=== PATIENT | male | born 1950 | race Caucasian/White ===

== ENCOUNTER 2020-04-25 19:11 | Emergency (ER) | payer MEDICARE ==
[2020-04-25 20:40] LABS: BASOPHILS % (AUTO) 0.5 % (0.0-5.0); EOSINOPHILS % (AUTO) 1.1 % (0.0-8.0); HEMATOCRIT 40.6 % (42-54); LYMPHOCYTES % (AUTO) 9.3 % (21.0-51.0); MEAN CORPUSCULAR HEMOGLOBIN 31.9 pg (27.0-33.0); MEAN CORPUSCULAR VOLUME 91.2 fL (79-99); NEUTROPHILS % (AUTO) 81.7 % (40.0-77.0); PLATELET COUNT (AUTO) 194 K/uL (130-400); RED BLOOD CELL COUNT(AUTO) 4.45 MIL/uL (4.50-6.20); RED CELL DISTRIBUTION WIDTH 11.9 % (11.0-15.5); WHITE BLOOD COUNT (AUTO) 11.7 K/uL (4.8-10.8)
[2020-04-25 20:55] LABS: CREATININE 1.2 mg/dL (0.5-1.5); POTASSIUM 4.2 mmol/L (3.5-5.1)
[2020-04-25 21:00] LABS: ALBUMIN 3.9 g/dL (3.5-5.0); BILIRUBIN,TOTAL 0.5 mg/dL (0.2-1.0); TOTAL PROTEIN, SERUM 7.7 g/dL (6.0-8.3)
[2020-04-25] MEDS ORDERED: LEVOFLOXACIN 750 MG/D5W 150 ML 150 ML ONE (21:51)
[2020-04-25 22:05] LABS: BILIRUBIN,URINE SMALL (NEGATIVE); GLUCOSE, URINE (UA) 100 mg/dL (NEGATIVE); KETONES,URINE NEGATIVE (NEGATIVE); LEUKOCYTE ESTERASE ,URINE MODERATE (NEGATIVE); NITRATE,URINE POSITIVE (NEGATIVE); OCCULT BLOOD,URINE LARGE (NEGATIVE); PROTEIN,URINE >=300 mg/dL (NEGATIVE); UROBILINOGEN,URINE 0.2 mg/dL (0.2-1.0)
[2020-04-25 22:07] LABS: APPEARANCE,URINE TURBID (CLEAR); COLOR,URINE RED (YELLOW)
[2020-04-25 22:10] LABS: BACTERIA,URINE Few /HPF (None Seen); RBC,URINE TNTC /HPF (0-1)
[2020-04-25 22:11] LABS: MUCUS,URINE None Seen LPF (None Seen); SQUAMOUS EPITHELIAL CELL,UR None Seen /HPF (0-2)
[2020-04-25] MEDS ORDERED: TAMSULOSIN HCL 0.4 MG CAP.ER.24H ONE (22:56)
[2020-04-25] MEDS ORDERED: DICYCLOMINE HCL 20 MG TAB ONE ×2 (22:57→23:01)
[2020-04-25] MEDS ORDERED: PHENAZOPYRIDINE HCL 200 MG TABLET ONE ×2 (22:57→23:00)
== END 2020-04-25 23:45 | disposition home or self-care (01) ==
LOC: EDH 19:11
DX: N41.0 Acute prostatitis (principal); R31.0 Gross hematuria; N39.0 Urinary tract infection, site not specified; Z88.0 Allergy status to penicillin
CPT/HCPCS: 36415; 74176; 80053; 81001; 85025; 87088; 96361; 96365; 96366; 99284; J1956

== ENCOUNTER 2020-04-26 17:34 | Inpatient (IN) | payer MEDICARE ==
[~2020-04-26] VITALS: Ht 177.8 cm; Wt 53.3 kg
[2020-04-26 18:54] LABS: BASOPHILS % (AUTO) 0.2 % (0.0-5.0); HEMATOCRIT 38.3 % (42-54); LYMPHOCYTES % (AUTO) 4.1 % (21.0-51.0); MEAN CORPUSCULAR HEMOGLOBIN 30.9 pg (27.0-33.0); MEAN CORPUSCULAR HGB CONC 34.7 g/dL (32.0-36.0); MEAN CORPUSCULAR VOLUME 88.9 fL (79-99); MONOCYTES % (AUTO) 6.1 % (3.0-13.0); NEUTROPHILS % (AUTO) 89.2 % (40.0-77.0); PLATELET COUNT (AUTO) 191 K/uL (130-400); RED BLOOD CELL COUNT(AUTO) 4.31 MIL/uL (4.50-6.20); RED CELL DISTRIBUTION WIDTH 11.6 % (11.0-15.5); WHITE BLOOD COUNT (AUTO) 14.3 K/uL (4.8-10.8)
[2020-04-26 19:03] LABS: CREATININE 1.6 mg/dL (0.5-1.5); POTASSIUM 3.8 mmol/L (3.5-5.1)
[2020-04-26] MEDS ORDERED: MORPHINE 2 MG SYG ONE (19:47)
[2020-04-26] MEDS ORDERED: ONDANSETRON 4MG INJ IV PRN (22:45)
[2020-04-26] MEDS ORDERED: DiphenhydrAMINE HCL 50 MG/ML VIAL IV PRN (22:45)
[2020-04-26] MEDS ORDERED: MAG/ALUM/SIMETH 30 ML UDCUP PO PRN (22:45)
[2020-04-26] MEDS ORDERED: MORPHINE 2 MG SYG IV PRN (22:45)
[2020-04-26] MEDS ORDERED: GUAIFENESIN-DM 200/20 MG 10 ML PO PRN (22:45)
[2020-04-26] MEDS ORDERED: HYDROMORPHONE 1 MG INJ IV PRN (22:45)
[2020-04-26] MEDS ORDERED: NITROGLYCERIN 0.4 MG SL TAB SL PRN (22:45)
[2020-04-26] MEDS ORDERED: DIPHENHYDRAMINE HCL 25 MG CAPSULE PO PRN (22:45)
[2020-04-26] MEDS ORDERED: LACTULOSE 20 GM/30 ML UDCUP PO PRN (22:45)
[2020-04-26] MEDS ORDERED: ACETAMINOPHEN 325 MG TAB PO PRN ×2 (22:45)
[2020-04-26 23:15] LABS: APPEARANCE,URINE CLOUDY (CLEAR); BILIRUBIN,URINE SMALL (NEGATIVE); COLOR,URINE BROWN (YELLOW); GLUCOSE, URINE (UA) 100 mg/dL (NEGATIVE); KETONES,URINE 15 mg/dL (NEGATIVE); LEUKOCYTE ESTERASE ,URINE MODERATE (NEGATIVE); NITRATE,URINE POSITIVE (NEGATIVE); OCCULT BLOOD,URINE LARGE (NEGATIVE); PROTEIN,URINE >=300 mg/dL (NEGATIVE)
[2020-04-26 23:44] LABS: RBC,URINE TNTC /HPF (0-1); WBC,URINE TNTC /HPF (0-1)
[2020-04-26 23:45] LABS: AMORPHOUS SEDIMENT,UR Moderate /LPF (None Seen); BACTERIA,URINE Moderate /HPF (None Seen)
[2020-04-27] VITALS (24 sets, daily range): BP systolic 98–149; BP diastolic 46–93
[2020-04-27] MEDS ORDERED: RENAL DOSE IV SCH (00:45)
[2020-04-27] MEDS: TAMSULOSIN HCL 0.4 MG CAP.ER.24H PO SCH ×2 (00:45→09:00)
[2020-04-27] MEDS ORDERED: LEVOFLOXACIN 750 MG/D5W 150 ML 150 ML IV SCH (00:45)
[2020-04-27] MEDS ORDERED: ASPI-1026 PO (01:22)
[2020-04-27] MEDS ORDERED: CAND16TA28 PO (01:22)
[2020-04-27] MEDS ORDERED: METO-408 PO (01:22)
[2020-04-27] MEDS: LEVOFLOXACIN 250 MG/D5W 50ML 50 ML IVPB SCH (03:32)
[2020-04-27 05:30] LABS: BASOPHILS % (AUTO) 0.1 % (0.0-5.0); EOSINOPHILS % (AUTO) 0.1 % (0.0-8.0); HEMATOCRIT 36.8 % (42-54); LYMPHOCYTES % (AUTO) 5.2 % (21.0-51.0); MEAN CORPUSCULAR HEMOGLOBIN 31.2 pg (27.0-33.0); MEAN CORPUSCULAR HGB CONC 35.1 g/dL (32.0-36.0); MEAN CORPUSCULAR VOLUME 89.1 fL (79-99); MONOCYTES % (AUTO) 5.8 % (3.0-13.0); NEUTROPHILS % (AUTO) 88.4 % (40.0-77.0); PLATELET COUNT (AUTO) 188 K/uL (130-400); RED BLOOD CELL COUNT(AUTO) 4.13 MIL/uL (4.50-6.20); RED CELL DISTRIBUTION WIDTH 11.7 % (11.0-15.5)
[2020-04-27 05:37] LABS: CREATININE 1.5 mg/dL (0.5-1.5)
[2020-04-27] MEDS ORDERED: DEXAMETHASONE SOD PHOSPHATE 10MG/ML 1ML VIAL ONE (08:54)
[2020-04-27] MEDS ORDERED: SUCCINYLCHOLINE 200MG/10ML SYR ONE (08:54)
[2020-04-27] MEDS ORDERED: LIDOCAINE PF 100MG/5ML (2%) SYRINGE 5ML ONE (08:54)
[2020-04-27] MEDS ORDERED: MIDAZOLAM HCL 1 MG/ML 2ML VIAL ONE (08:54)
[2020-04-27] MEDS ORDERED: GLYCOPYRROLATE 1 MG/5 ML SYRINGE ONE (08:55)
[2020-04-27] MEDS ORDERED: ROCURONIUM 10MG/1ML SYR 10 MG/ML ML ONE (08:55)
[2020-04-27] MEDS ORDERED: ONDANSETRON 4MG INJ ONE (08:55)
[2020-04-27] MEDS ORDERED: NEOSTIGMINE 5MG/5ML SYR IV ONE (08:55)
[2020-04-27] MEDS ORDERED: PROPOFOL 10 MG/ML 20ML VIAL IV ONE (08:55)
[2020-04-27] MEDS ORDERED: FENTANYL CITRATE PF 50 MCG/1 ML 2ML VIAL ONE (08:55)
[2020-04-27] MEDS ORDERED: ESMOLOL HCL 10 MG/ML 10 ML VIAL ONE (09:16)
[2020-04-27] MEDS ORDERED: IOHEXOL 350 MG/ML 100ML INFUS..BTL IV ONE (10:00)
[2020-04-27] MEDS ORDERED: LACTATED RINGERS 1000ML 2,000 ML IV ONE (12:06)
[2020-04-27] MEDS ORDERED: PHEN-847 PO (19:18)
[2020-04-27] MEDS ORDERED: TAMS-1 PO (19:18)
[2020-04-27] MEDS ORDERED: LEVO750T46 PO (19:18)
[2020-04-27] MEDS ORDERED: DICY10CA13 PO (19:18)
[2020-04-27] MEDS ORDERED: DICYCLOMINE HCL 20 MG TAB PO PRN (19:30)
[2020-04-27] MEDS ORDERED: NON-FORMULARY MEDICATION 1 EACH (Dicyclomine HCl 10 MG) PO PRN (19:30)
[2020-04-28] MEDS: LEVOFLOXACIN 250 MG/D5W 50ML 50 ML IVPB SCH (03:14)
[2020-04-28 04:05] VITALS: BP 108/64
[2020-04-28 05:17] LABS: BASOPHILS % (AUTO) 0.1 % (0.0-5.0); HEMATOCRIT 35.7 % (42-54); LYMPHOCYTES % (AUTO) 5.1 % (21.0-51.0); MEAN CORPUSCULAR HEMOGLOBIN 30.3 pg (27.0-33.0); MEAN CORPUSCULAR HGB CONC 33.1 g/dL (32.0-36.0); MEAN CORPUSCULAR VOLUME 91.8 fL (79-99); NEUTROPHILS % (AUTO) 87.3 % (40.0-77.0); PLATELET COUNT (AUTO) 185 K/uL (130-400); RED BLOOD CELL COUNT(AUTO) 3.89 MIL/uL (4.50-6.20); RED CELL DISTRIBUTION WIDTH 12.1 % (11.0-15.5); WHITE BLOOD COUNT (AUTO) 13.1 K/uL (4.8-10.8)
[2020-04-28 05:22] LABS: CREATININE 1.1 mg/dL (0.5-1.5); POTASSIUM 3.9 mmol/L (3.5-5.1)
[2020-04-28 08:24] VITALS: BP 121/66
[2020-04-28] MEDS ORDERED: CANDESARTAN CILEXETIL 16 MG TAB PO SCH (09:00)
[2020-04-28] MEDS ORDERED: NON-FORMULARY MEDICATION 1 EACH (Metoprolol Succinate 50 MG) PO SCH (09:00)
[2020-04-28] MEDS ORDERED: TAMSULOSIN HCL 0.4 MG CAP.ER.24H PO SCH (09:00)
[2020-04-28] MEDS ORDERED: METOPROLOL SUCCINATE 50 MG TAB.SR.24H PO SCH (09:00)
[2020-04-28] MEDS: TAMSULOSIN HCL 0.4 MG CAP.ER.24H PO SCH (09:12)
[2020-04-28] MEDS ORDERED: LOSARTAN 100 MG TABLET PO SCH (09:17)
[2020-04-28 11:00] VITALS: BP 111/72
[2020-04-28] MEDS ORDERED: LEVO500T90 PO (16:11)
[2020-04-28 17:03] VITALS: BP 100/68
== END 2020-04-28 18:50 | disposition home or self-care (01) | DRG 699 ==
LOC: EDH 17:34 → EDHIP 22:43 → OBSVTOIN 22:43 → 3DH 23:52
PROVIDERS: ADMIT Family Medicine; ATTEND Family Medicine
PROC: 0T9B8ZZ Drainage of Bladder, Via Natural or Artificial Opening Endoscopic (ICD-10-PCS; principal; 2020-04-27 09:00)
PROC: 0T7C8ZZ Dilation of Bladder Neck, Via Natural or Artificial Opening Endoscopic (ICD-10-PCS; 2020-04-27 09:00)
PROC: BT101ZZ Fluoroscopy of Bladder using Low Osmolar Contrast (ICD-10-PCS; 2020-04-27 09:00)
DX: N32.0 Bladder-neck obstruction (principal); N13.6 Pyonephrosis; N17.9 Acute kidney failure, unspecified; N32.89 Other specified disorders of bladder; N35.919 Unspecified urethral stricture, male, unspecified site; C61 Malignant neoplasm of prostate; R33.8 Other retention of urine; E78.5 Hyperlipidemia, unspecified; Z92.3 Personal history of irradiation; Z88.0 Allergy status to penicillin; Z85.46 Personal history of malignant neoplasm of prostate
CPT/HCPCS: 36415; 74176; 74430; 80048; 80053; 81001; 85025; 87088; 96361; 96365; 96366; A4346; A4354; C1758; C1769; G0378; J0330; J1100; J1956; J2001; J2250; J2405; J2704; J2710; J3010; J3490; J7120; Q9967

== ENCOUNTER → 2020-05-09 | Outpatient (CLI) | payer MEDICARE ==
[~2020-05-09] MED LIST: ASPI-1026 PO; CAND16TA12 PO; DICY10CA13 PO; LEVO500T89 PO; LEVO750T46 PO; METO-408 PO; PHEN-847 PO; TAMS-1 PO
== END | disposition home or self-care (01) ==
LOC: RAH 15:30
PROVIDERS: ATTEND Urology
DX: N13.39 Other hydronephrosis (principal)
CPT/HCPCS: 76770